=== PATIENT | male | born 1955 | race Caucasian/White ===

== ENCOUNTER 2020-07-02 11:42 | Outpatient (CLI) | payer OTHER ==
[2020-07-03] MEDS ORDERED: MULT-449 PO (09:50)
[2020-07-03] MEDS ORDERED: GABA600T7 PO ×2 (09:50)
[2020-07-03] MEDS ORDERED: mucinex PO (09:50)
[2020-07-03] MEDS ORDERED: glucosamine/chondroi PO (09:50)
[2020-07-03] MEDS ORDERED: DOFE500C PO (09:50)
[2020-07-03] MEDS ORDERED: METH750T2 PO ×2 (09:50)
[2020-07-03] MEDS ORDERED: FURO20TA3 PO (09:50)
[2020-07-03] MEDS ORDERED: POTA20TA89 PO (09:50)
[2020-07-03] MEDS ORDERED: RIVA20TA PO (09:50)
[2020-07-03] MEDS ORDERED: FEXO180T72 PO (09:50)
[2020-07-03] MEDS ORDERED: CHOL10003 PO (09:50)
[2020-07-03 10:09] LABS: BASOPHILS # (AUTO) 0.02 x10^3/uL (0-0.1); BASOPHILS % (AUTO) 1 % (0-1); EOSINOPHILS # (AUTO) 0.12 x10^3/uL (0-0.4); EOSINOPHILS % (AUTO) 3 % (1-7); LYMPHOCYTES # (AUTO) 1.27 x10^3/uL (1-3.4); LYMPHOCYTES % (AUTO) 27 % (22-44); MD NO; MEAN CORPUSCULAR VOLUME 81.2 fL (81-97); MEAN PLATELET VOLUME 7.9 fL (7.4-10.4); MONOCYTES # (AUTO) 0.38 x10^3/uL (0.2-0.8); MONOCYTES % (AUTO) 8 % (2-9); NEUTROPHILS # (AUTO) 2.94 x10^3/uL (1.8-6.8); NEUTROPHILS % (AUTO) 62 % (42-75); PLATELET COUNT 234 x10^3/uL (130-400); RED BLOOD COUNT 5.47 x10^6/uL (4.38-5.82); RED CELL DISTRIBUTION WIDTH 15.4 % (9.4-14.8)
[2020-07-03 10:10] LABS: HCT (SEDRATE) 44.9 % (39.2-51.8)
[2020-07-03 10:16] LABS: INTERNATIONAL NORMALIZED RATIO 1.01 (0.93-1.1); PROTHROMBIN TIME 10.4 Seconds (9.6-11.5)
[2020-07-03 10:21] LABS: ALBUMIN 3.5 g/dL (3.4-5.0); ANION GAP 4 mmol/L (5-15); CALCIUM 9.2 mg/dL (8.5-10.1); CHLORIDE 112 mmol/L (98-107)
[2020-07-03 10:24] LABS: ALANINE AMINOTRANSFERASE 35 U/L (12-78); ALKALINE PHOSPHATASE 103 U/L (45-117); BILIRUBIN,TOTAL 0.6 mg/dL (0.2-1.0); CREATININE 0.86 mg/dL (0.7-1.3); TOTAL PROTEIN 7.5 g/dL (6.4-8.2)
== END 2020-07-03 23:59 | disposition home or self-care (01) ==
LOC: STAR 11:42
PROVIDERS: ATTEND Anesthesiology
DX: Z01.818 Encounter for other preprocedural examination (principal); Z20.828 Contact with and (suspected) exposure to other viral communicable diseases; G56.01 Carpal tunnel syndrome, right upper limb
CPT/HCPCS: 36415; 71046; 80053; 83036; 85025; 85610; 85651; 85730; 87635; 93005

== ENCOUNTER 2020-07-06 10:15 | Day surgery (SDC) | payer BC, OTHER ==
[~2020-07-06] VITALS: Ht 180.3 cm; Wt 87.1 kg
[~2020-07-06 10:15] MED LIST: CHOL10003 PO; DOFE500C PO; FEXO180T72 PO; FURO20TA3 PO; GABA600T7 PO; METH750T2 PO; MULT-449 PO; POTA20TA89 PO; RIVA20TA PO; glucosamine/chondroi PO; mucinex PO
[2020-07-06] MEDS ORDERED: LACTATED RINGERS 1,000 ML IV SCH (10:27)
[2020-07-06] MEDS ORDERED: CHLORHEXIDINE 15 ML UDC MM ONE (10:30)
[2020-07-06 10:34] VITALS: BP 116/74
[2020-07-06] MEDS ORDERED: CHLORHEXIDINE 15 ML UDC ONE (10:48)
[2020-07-06] MEDS ORDERED: FENTANYL PF 100 MCG/2ML ONE (12:10)
[2020-07-06] MEDS ORDERED: MIDAZOLAM 1 MG/ML, 2ML ONE (12:11)
[2020-07-06] MEDS ORDERED: BUPIVACAINE/PF 0.5% ONE (12:16)
[2020-07-06] MEDS ORDERED: BUPIVACAINE/PF 0.5% INFIL ONE (12:46)
[2020-07-06] MEDS ORDERED: ONDANSETRON 2MG/ML, 2ML ONE (12:47)
[2020-07-06] MEDS ORDERED: DEXAMETHASONE 4 MG/ML, 1ML ONE (12:47)
[2020-07-06] MEDS ORDERED: CEFAZOLIN 1,000 MG ONE (12:47)
[2020-07-06] MEDS ORDERED: PROPOFOL 10 MG/ML, 20ML ONE (12:47)
[2020-07-06] MEDS ORDERED: ONDANSETRON 2MG/ML, 2ML IVPush PRN (13:30)
[2020-07-06] MEDS ORDERED: FENTANYL PF 100 MCG/2ML IV PRN (13:30)
[2020-07-06] MEDS ORDERED: OXYcodone 5 MG/5 ML ORAL.SOL UDC PO PRN (13:30)
[2020-07-06] MEDS ORDERED: HYDROmorphone 1 MG/ML, 1ML INJ IVPush PRN (13:30)
[2020-07-06] MEDS ORDERED: LABETALOL 5MG/ML, 20ML IV PRN (13:30)
[2020-07-06] MEDS ORDERED: PROMETHAZINE 25 MG/ML, 1ML IVPush PRN (13:30)
[2020-07-06] MEDS ORDERED: ACETAMINOPHEN 325 MG TABLET PO PRN (13:30)
[2020-07-06] MEDS ORDERED: PROMETHAZINE 25 MG SUPP PR PRN (13:30)
== END 2020-07-06 14:00 | disposition home or self-care (01) ==
LOC: OUT 10:15
PROVIDERS: ATTEND Orthopaedic Surgery Orthopaedic Surgery of the Spine
DX: G56.01 Carpal tunnel syndrome, right upper limb (principal); I11.0 Hypertensive heart disease with heart failure; I50.9 Heart failure, unspecified; I48.91 Unspecified atrial fibrillation; I42.8 Other cardiomyopathies; Z79.01 Long term (current) use of anticoagulants; Z79.899 Other long term (current) drug therapy; Z98.890 Other specified postprocedural states; Z96.653 Presence of artificial knee joint, bilateral; Z82.49 Family history of ischemic heart disease and other diseases of the circulatory system
CPT/HCPCS: 64721; J0690; J1100; J2250; J2405; J2704; J3010; J7120